=== PATIENT | male | born 1955 | race Asian ===

== ENCOUNTER 2017-03-31 12:04 | Emergency (ER) | payer OTHER ==
[~2017-03-31] VITALS: Ht 167.6 cm; Wt 79.4 kg
[2017-03-31 15:15] VITALS: BP 138/97
== END 2017-03-31 15:15 | disposition home or self-care (01) ==
LOC: ED 12:04
DX: S83.92XA Sprain of unspecified site of left knee, initial encounter (principal); I10 Essential (primary) hypertension; E78.00 Pure hypercholesterolemia, unspecified; E11.9 Type 2 diabetes mellitus without complications; X58.XXXA Exposure to other specified factors, initial encounter; Y93.89 Activity, other specified; Y99.8 Other external cause status; Y92.89 Other specified places as the place of occurrence of the external cause
CPT/HCPCS: Q0092

== ENCOUNTER 2017-08-28 20:17 | Inpatient (IN) | payer OTHER ==
[~2017-08-28] VITALS: Ht 162.6 cm; Wt 73.2 kg
[2017-08-28 22:22] LABS: BASOPHIL % 0.3 % (0-2); RED CELL DISTRIBUTION WIDTH 13.7 % (11.5-14.5)
[2017-08-28 22:26] LABS: PLATELET COUNT 129 x10^3mcL (130-400)
[2017-08-28 22:35] LABS: CALCIUM 8.3 mg/dL (8.5-10.1); CARBON DIOXIDE 27.5 mmol/L (21-32); CHLORIDE SERUM 102 mmol/L (98-107); CREATININE SERUM 0.8 mg/dL (0.7-1.3); GFR1 > 60 mL/min; GLUCOSE SERUM 142 mg/dL (74-106); POTASSIUM SERUM 3.7 mmol/L (3.5-5.1); SODIUM SERUM 138 mmol/L (136-145)
[2017-08-28 22:40] LABS: ALBUMIN 3.6 g/dL (3.4-5.0); ALKALINE PHOSPHATASE 43 U/L (46-116); ALT/SGPT 22 U/L (16-63); AST/SGOT 18 U/L (15-37); BILIRUBIN TOTAL 0.4 mg/dL (0.20-1.00); TOTAL PROTEIN, SERUM 6.9 g/dL (6.4-8.2)
[2017-08-28] MEDS ORDERED: GOOD SENSE ASPI81 M3 PO (23:52)
[2017-08-28] MEDS ORDERED: ATIVAN0.5 M1 PO (23:53)
[2017-08-28] MEDS ORDERED: CLARITIN10 MG PO (23:53)
[2017-08-28] MEDS ORDERED: FLONS (23:53)
[2017-08-28] MEDS ORDERED: ATIVAN0.5 M1 (23:53)
[2017-08-28] MEDS ORDERED: METFORMIN500 M1 PO (23:54)
[2017-08-28] MEDS ORDERED: ADV200 PO (23:54)
[2017-08-28] MEDS ORDERED: TAMSULOSIN HYD0.4 M1 PO (23:55)
[2017-08-28] MEDS ORDERED: PROAIR RES117 MCG/Ac IH (23:55)
[2017-08-28] MEDS ORDERED: TOPROL XL25 MG PO (23:56)
[2017-08-28] MEDS ORDERED: ZESTRIL5 MG PO (23:56)
[2017-08-29 01:17] VITALS: BP 113/75
[2017-08-29 02:03] LABS: MAGNESIUM 1.8 mg/dL (1.8-2.4); PHOSPHOROUS 3.2 mg/dL (2.5-4.9); T3 TOTAL 0.86 ng/mL
[2017-08-29 02:07] LABS: CHOLESTEROL/HDL RATIO 2.6
[2017-08-29 02:11] LABS: FREE T4 0.95 ng/dL (0.76-1.46); FREE THYROXINE INDEX 1.6 ug/dL (1.4-4.5); T4(THYROXINE) 4.9 ug/dL (4.7-13.3)
[2017-08-29 04:32] LABS: microscopic required? YES; urine erythrocyte TRACE (NEGATIVE)
[2017-08-29 04:47] LABS: AMPHETAMINE QUAL UR NONE DETECTED (NEG <=1000)
[2017-08-29 04:52] LABS: BASOPHIL % 0.3 % (0-2); RED CELL DISTRIBUTION WIDTH 14.1 % (11.5-14.5)
[2017-08-29 05:00] LABS: PLATELET COUNT 127 x10^3mcL (130-400)
[2017-08-29 05:12] LABS: CALCIUM 8.2 mg/dL (8.5-10.1); CARBON DIOXIDE 27.3 mmol/L (21-32); CHLORIDE SERUM 106 mmol/L (98-107); CREATININE SERUM 0.7 mg/dL (0.7-1.3); GFR1 > 60 mL/min; GLUCOSE SERUM 95 mg/dL (74-106); POTASSIUM SERUM 3.7 mmol/L (3.5-5.1); SODIUM SERUM 141 mmol/L (136-145)
[2017-08-29 06:10] VITALS: BP 113/67
[2017-08-29 06:21] VITALS: BP 113/67
[2017-08-29 09:59] VITALS: BP 122/80
[2017-08-29] MEDS ORDERED: TAM75 PO (11:04)
[2017-08-29 13:01] VITALS: BP 122/80
== END 2017-08-29 13:34 | disposition home or self-care (01) | DRG 113 ==
LOC: ED 20:17 → DU 23:52
PROVIDERS: Emergency Medicine; Family Medicine
DX: J11.1 Influenza due to unidentified influenza virus with other respiratory manifestations (principal); D68.69 Other thrombophilia; D69.6 Thrombocytopenia, unspecified; E11.65 Type 2 diabetes mellitus with hyperglycemia; I48.91 Unspecified atrial fibrillation; I25.10 Atherosclerotic heart disease of native coronary artery without angina pectoris; I10 Essential (primary) hypertension; N40.0 Benign prostatic hyperplasia without lower urinary tract symptoms; E66.3 Overweight; I25.2 Old myocardial infarction; Z79.82 Long term (current) use of aspirin; Z68.27 Body mass index [BMI] 27.0-27.9, adult; Z95.5 Presence of coronary angioplasty implant and graft; Z79.84 Long term (current) use of oral hypoglycemic drugs; Z79.1 Long term (current) use of non-steroidal anti-inflammatories (NSAID); Z88.5 Allergy status to narcotic agent; J20.9 Acute bronchitis, unspecified; E02 Subclinical iodine-deficiency hypothyroidism
CPT/HCPCS: 83880; 84439; 87804; J1885; J1956; J7030; Q0092